=== PATIENT | male | born 1980 | race Caucasian/White ===

== ENCOUNTER 2019-09-11 17:25 | Emergency (ER) | payer MEDICAID ==
[~2019-09-11] VITALS: Ht 172.7 cm; Wt 91.6 kg
[2019-09-11 17:48] VITALS: BP 120/88
--- NOTE | 2019-09-11 17:58 | NUR ---
EKG DONE UPON TRIAGE AND SHOWED TO DR. CONNER. ASSISTED PT TO WAIT IN THE LOBBY.
[2019-09-11] MEDS ORDERED: KETOROLAC 30 MG/ML VIAL IM ONE (19:10)
[2019-09-11] MEDS ORDERED: ASPIRIN 325 MG TAB PO ONE (19:10)
--- NOTE | 2019-09-11 20:00 | NUR ---
RECEIVED REPORT FROM PANCHITO HADDAD
--- NOTE | 2019-09-11 20:03 | NUR ---
38/M C/O INTERMITTENT PRESSURE-LIKE LEFT SIDED CP RADIATING TO LEFT ARM AND SOB FOR ONE WEEK. NAUSEA SINCE TODAY. NO VOMITING. SOB MORE BOTHERSOME TO THAN CP. CP IS EPISODIC AND LAST APPROX 10 MINUTES. BROUGHT ON BY EXERTION AND RELIEVED WITH REST. DENIES F/C, DIAPHORESIS. PT STATES ANXIETY PMH: DENIES MEDS: DENIES
[2019-09-11 20:16] LABS: BASOPHILS % (AUTO) 0.5 % (0.0-2.0); EOSINOPHILS # (AUTO) 0.1 K/uL (0-0.4); EOSINOPHILS % (AUTO) 0.8 % (0.0-4.0); HEMATOCRIT 48.3 % (36-52); HEMOGLOBIN 16.4 g/dL (12.0-18.0); LYMPHOCYTES % (AUTO) 27.8 % (20.5-51.1); MEAN CORPUSCULAR HEMOGLOBIN 31 pg (27-31); MEAN CORPUSCULAR HGB CONC 34 g/dL (33-37); MEAN CORPUSCULAR VOLUME 91.8 fL (80-94); MONOCYTES # (AUTO) 0.7 K/uL (0.8-1.0); MONOCYTES % (AUTO) 9.9 % (1.7-9.3); NEUTROPHILS # (AUTO) 4.4 K/uL (1.8-7.7); PLATELET COUNT (AUTO) 209 K/uL (140-450); RED BLOOD CELL COUNT(AUTO) 5.26 MIL/uL (4.20-6.10); RED CELL DISTRIBUTION WIDTH 13.1 % (11.6-13.7); WHITE BLOOD COUNT (AUTO) 7.2 K/uL (4.8-10.8)
[2019-09-11 20:31] LABS: CARBON DIOXIDE 29.9 mmol/L (21-32); CREATININE 1.1 mg/dL (0.7-1.3); POTASSIUM 3.9 mmol/L (3.5-5.1)
[2019-09-11 20:36] LABS: ALBUMIN 3.7 g/dL (3.4-5.0); TOTAL BILIRUBIN 0.3 mg/dL (0.0-1.0)
[2019-09-11 21:23] LABS: CREATINE KINASE MB 1.2 ng/mL (0-3.6)
--- NOTE | 2019-09-11 21:29 | NUR ---
Dr. Vallejo examining patient.
--- NOTE | 2019-09-11 21:38 | NUR ---
PA STATES "I FEEL MUCH BETTER". DENIES PAIN AT THIS TIME.
--- NOTE | 2019-09-11 21:39 | NUR ---
AMB TO BATHROOM WITH STEADY GAIT
--- NOTE | 2019-09-11 21:52 | NUR ---
EKG PERFORMED AT BEDSIDE
[2019-09-11 22:57] VITALS: BP 112/72
--- NOTE | 2019-09-11 22:57 | NUR ---
Patient discharged with v/s stable. Written and verbal after care instructions given and explained. Patient alert, oriented and verbalized understanding of instructions. Ambulatory with steady gait. All questions addressed prior to discharge. ID band removed. Patient advised to follow up with PMD. Rx of IBUPROFEN WAS given. Patient educated on indication of medication including possible reaction and side effects. Opportunity to ask questions provided and answered. PT STATED HE HAD NO PAIN PRIOR TO D/C
== END 2019-09-11 22:57 | disposition home or self-care (01) ==
LOC: MED 17:25
DX: R07.89 Other chest pain (principal); R06.02 Shortness of breath; R00.2 Palpitations
CPT/HCPCS: 36415; 71045; 80053; 82550; 82553; 83690; 84484; 85025; 93005; 96372; 99284; J1885; Q0092